=== PATIENT | male | born 1980 | race American Indian/Alaskan Native ===

== ENCOUNTER 2020-12-21 23:53 | Emergency (ER) | payer OTHER ==
[2020-12-22 00:19] VITALS: BP 130/81
[2020-12-22] MEDS ORDERED: ACETAMINOPHEN 500 MG TAB PO ONE (00:28)
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
== END 2020-12-22 04:10 | disposition home or self-care (01) ==
LOC: ED 23:53
DX: G44.319 Acute post-traumatic headache, not intractable (principal); J32.2 Chronic ethmoidal sinusitis; M62.838 Other muscle spasm; M62.830 Muscle spasm of back; Z79.899 Other long term (current) drug therapy; V49.59XA Passenger injured in collision with other motor vehicles in traffic accident, initial encounter; Y92.410 Unspecified street and highway as the place of occurrence of the external cause; Y93.89 Activity, other specified; Y99.8 Other external cause status
CPT/HCPCS: 70450; 72100; 72125

== ENCOUNTER 2021-02-21 16:48 | Emergency (ER) | payer SELFPAY ==
[2021-02-21 17:29] VITALS: BP 141/78
[2021-02-21] MEDS ORDERED: ACETAMINOPHEN 500 MG TAB PO ONE (19:30)
[2021-02-21] MEDS ORDERED: IBUPROFEN 600 MG TAB PO ONE (19:30)
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
--- NOTE | 2021-02-21 20:56 | Emergency Department Report ---
ED Fall HPI - General Chief Complaint: Fall Stated Complaint: LT ANKLE INJURY/FALL Source: patient Mode of arrival: Ambulatory - History of Present Illness Initial Comments: Patient is a 40-year-old -Citizen Of [place] male with no past medical history presents to the ED with complaint of acute onset persistent severe left lateral rib cage pain and left ankle pain after he slipped and fell down hitting his left side against a piece of furniture and twisting his left ankle 2 days ago. Patient states that the pain was initially mild but in the last 24 hours the pain in the left lateral rib cage has been worsening especially with movement or deep inhalation and that the left ankle pain is worse with ambulation. Patient denies head or neck injuries, dizziness, syncope, shortness of breath, back pain , abdominal pain, hematuria, numbness and tingling or weakness of upper and lower extremities bilaterally or change in vision and seizures. MD Complaint: fall (left rib cage pain), other (left ankle pain) -: Sudden, days(s) (2) Fall From: standing When Fall Occurred: # days [employer] (2) Fall Witnessed: no Place Fall Occurred: home Loss of Consciousness: none Prolonged Down Time?: no Symptoms Prior to Fall: none Location: other (left ankle, left rib cage) Location - Extremities: Left: Ankle (pain) Severity: severe Severity scale (0 -10): 7 Quality: sharp, aching Context: tripped/slipped Associated Symptoms: denies. denies: headache, neck pain, numbness, weakness, chest paint, shortness of breath, abdominal pain, hematuria, unable to walk, lightheaded, vertigo, confusion, other - Related Data Previous Rx's Medication Instructions Recorded Last Taken Type Amoxicillin/Potassium Clav 1 each PO Q12H #20 tablet 12/22/20 Unknown Rx [Augmentin 875-125 Tablet] Baclofen 20 mg PO Q8H PRN #21 tablet 12/22/20 Unknown Rx Ibuprofen [Motrin] 600 mg PO Q8H PRN #30 tablet 12/22/20 Unknown Rx Baclofen 20 mg PO Q12H PRN #20 tablet 02/21/21 Unknown Rx Ibuprofen [Motrin] 800 mg PO Q8HR PRN #30 tablet 02/21/21 Unknown Rx Allergies Allergy/AdvReac Type Severity Reaction Status Date / Time No Known Allergies Allergy Verified 02/21/21 17:29 ED Review of Systems ROS: Stated complaint: LT ANKLE INJURY/FALL Other details as noted in HPI Constitutional: denies: chills, fever Eyes: denies: eye pain, eye discharge, vision change ENT: denies: ear pain, throat pain Respiratory: denies: cough, shortness of breath, wheezing Cardiovascular: chest pain (Left lateral rib pain). denies: palpitations Endocrine: no symptoms reported Gastrointestinal: denies: abdominal pain, nausea, diarrhea Genitourinary: denies: urgency, dysuria Musculoskeletal: arthralgia (Left ankle pain). denies: joint swelling Skin: denies: rash, lesions Neurological: denies: headache, weakness, paresthesias Psychiatric: denies: anxiety, depression Hematological/Lymphatic: denies: easy bleeding, easy bruising ED Past Medical Hx - Social History Smoking Status: Never Smoker Substance Use Type: None - Medications Home Medications: Home Medications Medication Instructions Recorded Confirmed Last Taken Type Amoxicillin/Potassium Clav 1 each PO Q12H #20 tablet 12/22/20 Unknown Rx [Augmentin 875-125 Tablet] Baclofen 20 mg PO Q8H PRN #21 tablet 12/22/20 Unknown Rx Ibuprofen [Motrin] 600 mg PO Q8H PRN #30 tablet 12/22/20 Unknown Rx Baclofen 20 mg PO Q12H PRN #20 tablet 02/21/21 Unknown Rx Ibuprofen [Motrin] 800 mg PO Q8HR PRN #30 tablet 02/21/21 Unknown Rx ED Physical Exam - General Limitations: No Limitations General appearance: alert, in no apparent distress - Head Head exam: Present: atraumatic, normocephalic, normal inspection - Eye Eye exam: Present: normal appearance, PERRL, EOMI Pupils: Present: normal accommodation - ENT ENT exam: Present: normal exam, normal orophraynx, mucous membranes moist, TM's normal bilaterally, normal external ear exam - Neck Neck exam: Present: normal inspection, full ROM. Absent: tenderness - Respiratory Respiratory exam: Present: normal lung sounds bilaterally, chest wall tenderness (Palpable reproducible left lateral rib and chest wall tenderness). Absent: respiratory distress, wheezes, rhonchi, accessory muscle use, decreased breath sounds - Cardiovascular Cardiovascular Exam: Present: regular rate, normal rhythm, normal heart sounds. Absent: systolic murmur, diastolic murmur, rubs, gallop - GI/Abdominal GI/Abdominal exam: Present: soft, normal bowel sounds. Absent: tenderness, guarding, hyperactive bowel sounds, hypoactive bowel sounds - Extremities Exam Extremities exam: Present: normal inspection, full ROM, tenderness (Palpable left ankle tenderness), normal capillary refill. Absent: calf tenderness - Back Exam Back exam: Present: normal inspection, full ROM. Absent: tenderness, CVA tenderness (R), muscle spasm, paraspinal tenderness, vertebral tenderness - Neurological Exam Neurological exam: Present: alert, oriented X3, CN II-XII intact, normal gait, reflexes normal - Psychiatric Psychiatric exam: Present: normal affect, normal mood - Skin Skin exam: Present: warm, dry, intact, normal color. Absent: rash ED Course Vital Signs 02/21/21 17:27 Temperature 98.2 F Pulse Rate 61 Respiratory 18 Rate Blood Pressure 141/78 O2 Sat by Pulse 100 Oximetry ED Medical Decision Making - Radiology Data Radiology results: report reviewed, [place] [address] XRay Report Signed Patient: ROMMEL DINERO MR#: [id number] 4 : 1980 Acct:[id number] Age/Sex: 40 / M ADM Date: 02/21/21 Loc: ED Attending Dr: Ordering Physician: MOOKIE ALDRIDGE Date of Service: 02/21/21 Procedure(s): XR ribs UNI w PA chest 3+V LT Accession Number(s): [id number] cc: MOOKIE ALDRIDGE Fluoro Time In Minutes: PA CHEST WITH LEFT RIB DETAIL 4 VIEWS INDICATION / CLINICAL INFORMATION: Fall with left chest wall/rib pain. COMPARISON: None available. FINDINGS: The heart size and pulmonary vasculature are normal. The lungs are clear. There is no evidence of pneumothorax or pleural effusion. There are old healed fractures of the right ninth and 10th ribs posterolaterally. I do not identify an acute rib fracture. Signer Name: Rommel Chavis MD Signed: 02/21/2021 8:08 PM Workstation Name: [id number] Transcribed By: RT Dictated By: Rommel Chavis MD Electronically Authenticated By: Rommel Chavis MD Signed Date/Time: 02/21/212007 DD/ 06 TD/TT: [facility] [address] [place] [address] XRay Report Signed Patient: ROMMEL DINERO MR#: [id number] 4 : 1980 Acct:[id number] Age/Sex: 40 / M ADM Date: 02/21/21 Loc: ED Attending Dr: Ordering Physician: MOOKIE ALDRIDGE Date of Service: 02/21/21 Procedure(s): XR ankle 3+V LT Accession Number(s): [id number] cc: MOOKIE ALDRIDGE Fluoro Time In Minutes: LEFT ANKLE 3 VIEWS INDICATION / CLINICAL INFORMATION: Fall with left ankle pain. COMPARISON: None available. FINDINGS: BONES / JOINT(S): No acute fracture or subluxation. No significant arthritis. SOFT TISSUES: No significant abnormality. ADDITIONAL FINDINGS: None. Signer Name: Rommel Chavis MD Signed: 02/21/2021 8:06 PM Workstation Name: [id number] Transcribed By: RT Dictated By: Rommel Chavis MD Electronically Authenticated By: Rommel Chavis MD Signed Date/Time: 02/21/212005 DD/ 05 TD/TT: - Medical Decision Making This is a 40-year-old -Citizen Of [place] male with no past medical history presents to the ED with complaint of acute onset persistent severe left lateral rib cage pain and left ankle pain after he slipped and fell down hitting his left side against a piece of furniture and twisting his left ankle 2 days ago. Patient states that the pain was initially mild but in the last 24 hours the pain in the left lateral rib cage has been worsening especially with movement or deep inhalation and that the left ankle pain is worse with ambulation. In the ED, patient is alert and oriented x3 and is not in any distress but appears to be in pain. Patient was treated for pain in the ED and left ankle x-ray showed no acute fractures or subluxations. The left lateral ribs and chest x-ray showed no acute rib fractures, pneumothorax, pleural effusion, or any cardiopulmonary abnormalities. On reevaluation, patient's pain is moderately controlled with pain medications. Patient was therefore discharged home on pain medications and advised to follow-up with his primary care physician in 5 to 7 days for reevaluation. Patient is advised return to the ED immediately if symptoms get worse. - Differential Diagnosis Rib fractures; rib contusion; ankle fracture; ankle sprain; chest contusion Critical care attestation.: If time is entered above; I have spent that time in minutes in the direct care of this critically ill patient, excluding procedure time. ED Disposition Clinical Impression: Left-sided chest wall pain Contusion of rib on left side Qualifiers: Encounter type: initial encounter Qualified Code(s): S20.212A - Contusion of left front wall of thorax, initial encounter Severe sprain of left ankle Qualifiers: Encounter type: initial encounter Qualified Code(s): S93.402A - Sprain of unspecified ligament of left ankle, initial encounter Disposition: TO HOME OR SELFCARE Is pt being admited?: No Does the pt Need Aspirin: No Condition: Stable Instructions: Ankle Sprain, [id number], Contusion, [id number], Nonspecific Chest Pain, Adult, [id number], Chest Wall Pain, [id number] Additional Instructions: Left rib and chest wall x-ray showed no rib fractures or pneumothorax or any cardiopulmonary abnormalities. The left ankle x-ray also showed no acute fractures or subluxations. Your symptoms are likely musculoskeletal soft tissue injuries following the fall. Therefore take medications with food, drink plenty of fluids and follow-up with your primary care physician in 5 to 7 days for reevaluation. Return to the emergency department immediately for further evaluation if your symptoms get worse. Prescriptions: Baclofen 20 mg PO Q12H PRN #20 tablet PRN Reason: Muscle Spasm Ibuprofen [Motrin] 800 mg PO Q8HR PRN #30 tablet PRN Reason: Pain , Severe (7-10) Referrals: [facility] [Provider Group] - 3-5 Days Time of Disposition: 21:00 Print Language: GREEK
== END 2021-02-21 21:33 | disposition home or self-care (01) ==
LOC: ED 16:48
DX: S93.402A Sprain of unspecified ligament of left ankle, initial encounter (principal); S20.212A Contusion of left front wall of thorax, initial encounter; Z79.899 Other long term (current) drug therapy; W01.190A Fall on same level from slipping, tripping and stumbling with subsequent striking against furniture, initial encounter; Y93.89 Activity, other specified; Y92.89 Other specified places as the place of occurrence of the external cause; Y99.8 Other external cause status
CPT/HCPCS: 99283